=== PATIENT | female | born 1985 | race Caucasian/White ===

== ENCOUNTER 2016-05-23 16:11 | Emergency (ER) | payer BC ==
[2016-05-23 16:26] VITALS: BP 150/82
--- NOTE | 2016-05-23 16:26 | ER Document Report ---
ED Medical Screen (RME) - General Stated Complaint: FEVER,CHEST PAIN Notes: 30 yo cough, chest tightness, hurts to breath, fever x 3 days. + sore throat. + smoker hx/o + IDDM [facility] [place] End[facility]ology[facility] lungs CTA, Sat98% - Related Data Allergies/Adverse Reactions: No Known Allergies Allergy (Unverified 12/06/13 23:20) Past Medical History Endocrine Medical History: Reports: Hx Diabetes Mellitus Type 1 Past Surgical History: Reports: Hx Orthopedic Surgery - rt shoulder - Immunizations Hx Diphtheria, Pertussis, Tetanus Vaccination: No
[2016-05-23 16:51] LABS: ABSOLUTE LYMPHOCYTES (AUTO) 0.5 10^3/uL (0.5-4.7); ABSOLUTE MONOCYTES (AUTO) 0.4 10^3/uL (0.1-1.4); BASOPHILS % (AUTO) 0.5 % (0-2); EOSINOPHILS % (AUTO) 0.1 % (0-6); HEMATOCRIT 37.2 % (36.0-47.0); HEMOGLOBIN 12.5 g/dL (12.0-15.5); HGB HCT DIFFERENCE 0.3; LYMPHOCYTES % (AUTO) 15.9 % (13-45); MEAN CORPUSCULAR HEMOGLOBIN 26.2 pg (27.0-33.4); MEAN CORPUSCULAR HGB CONC 33.6 g/dL (32.0-36.0); MEAN CORPUSCULAR VOLUME 78 fl (80-97); MONOCYTES % (AUTO) 13.4 % (3-13); RED BLOOD COUNT 4.78 10^6/uL (3.72-5.28); SEGMENTED NEUTROPHILS % (AUTO) 70.1 % (42-78); WHITE BLOOD COUNT 2.9 10^3/uL (4.0-10.5)
--- NOTE | 2016-05-23 17:35 | ER Document Report ---
ED General - General Chief Complaint: Cough Stated Complaint: FEVER,CHEST PAIN Mode of Arrival: Ambulatory Information source: Patient Notes: Patient is a 30 yo white female with PMHx of IDDM who presents with 4 day history of fever (Tmax 101 orally), productive cough (white phlegm), sinus congestion and nausea. She states the cold started to settle in her chest today which is causing chest tightness, worse with deep inspiration and cough. She denies any difficulty breathing, SOB, wheezing, vomiting, diarrhea or dysuria. She is smoker (3/4 PPD). She has tried OTC medications with no relief. No history of asthma. TRAVEL OUTSIDE OF THE [place] IN LAST 30 DAYS: No - Related Data Allergies/Adverse Reactions: No Known Allergies Allergy (Verified 05/23/16 16:25) Past Medical History - Social History Smoking Status: Current Every Day Smoker Chew tobacco use (# tins/day): No Frequency of alcohol use: None Drug Abuse: None Family History: Reviewed & Not Pertinent Patient has suicidal ideation: No Patient has homicidal ideation: No Endocrine Medical History: Reports: Hx Diabetes Mellitus Type 1 Renal/ Medical History: Denies: Hx Peritoneal Dialysis Past Surgical History: Reports: Hx Orthopedic Surgery - rt shoulder - Immunizations Hx Diphtheria, Pertussis, Tetanus Vaccination: No Review of Systems - Review of Systems Constitutional: See HPI EENT: No symptoms reported Cardiovascular: See HPI Respiratory: See HPI Gastrointestinal: No symptoms reported Genitourinary: No symptoms reported Female Genitourinary: No symptoms reported Musculoskeletal: No symptoms reported Skin: No symptoms reported Hematologic/Lymphatic: No symptoms reported Neurological/Psychological: No symptoms reported Physical Exam - Vital signs Vitals: Temp Pulse Resp BP Pulse Ox 98.5 F 91 18 150/82 H 98 05/23/16 16:25 05/23/16 16:25 05/23/16 16:25 05/23/16 16:25 05/23/16 16:25 Interpretation: Hypertensive - Notes Notes: PHYSICAL EXAM: CONSTITUTIONAL: Alert and oriented, well-appearing and in no acute distress. HENT: Normocephalic, atraumatic. Ear canals without erythema or foreign body, TMs pearly reyes with good bony landmarks. Nares clear without erythema, septal hematoma or deviation, airway patent. Oropharynx clear without erythema, tonsilar exudate or malocclusion. Trachea midline. Uvula midline. Moist mucous membranes. EYES: Pupils equal round and reactive to light, EOM intact. Sclera anicteric, conjunctiva are normal. No entrapment. NECK: supple without lymphadenopathy. ROM intact. HEART: Regular rate and rhythm without murmurs. LUNGS: CTAB and equal. No wheezes, rales or rhonchi. EXTREMITIES: Normal range of motion, no pitting edema. No cyanosis. Cap Refill < 3 seconds. NEURO: Cranial nerves grossly intact. Normal sensory/motor exams. SKIN: Warm and dry. Normal turgor. No rashes or lesions noted. Course - Re-evaluation Re-evalutation: 05/23/16 17:32 Patient seen and examined. No respiratory distress, speaking in full sentences, 98% O2 on RA, unlabored breathing. Lungs CTAB. Initial lab work unremarkable, CXR negative for acute cardiopulmonary findings. EKG shows NSR. Due to patient' s history of smoking, most likely bronchitis. Will treat with abx, inhaled bronchodilators, oral steroids and anti-tussives. Discharged home in stable condition, return precautions given. Follow-up with PMD. Patient gave verbal agreement to management and plan, all questions answered. - Vital Signs Vital signs: Temp Pulse Resp BP Pulse Ox 98.5 F 91 18 150/82 H 98 05/23/16 16:25 05/23/16 16:25 05/23/16 16:25 05/23/16 16:25 05/23/16 16:25 - Laboratory Result Diagrams: 05/23/16 16:38 Laboratory results interpreted by me: 05/23/16 16:38 WBC 2.9 L MCV 78 L MCH 26.2 L Monocytes % 13.4 H - Diagnostic Test Radiology reviewed: Image reviewed, Reports reviewed Discharge - Discharge Clinical Impression: Bronchitis, Cough Condition: Stable Disposition: HOME, SELF-CARE Additional Instructions: BRONCHITIS: You have acute bronchitis. This disease is an infection or inflammation of the air passageways in your lungs. Symptoms usually include cough, low grade fever, shortness of breath, and wheezing. The cough usually persists for a couple of weeks. Most cases of bronchitis get better without antibiotics. We prescribe antibiotics when we believe bacteria are damaging your airways, or if there's high risk the bronchitis will worsen into pneumonia. Increase your fluid intake. A cool mist humidifier may make your lungs more comfortable. An expectorant (cough medicine that loosens phlegm) can help. If you smoke, STOP!!! Recovery from bronchitis can be somewhat slow, but you should see improvement within a day or two. Repeated episodes of bronchitis may result in lung damage -- for example, chronic bronchitis, recurrent pneumonias, or emphysema. Call the doctor if you develop increasing fever, shortness of breath, chest pain, bloody sputum, or otherwise worsen. If you have not improved at all after several days, contact the physician. DECONGESTANT MEDICATION: A decongestant medicine has been prescribed. Often this medicine is combined in the same tablet with an antihistamine or expectorant. This type of medicine is helpful in treating a bad cold or sinus condition, as well as in treatment of the nasal congestion of hay fever. It is not of much benefit for lung infections. Decongestant medicines are related to stimulants. They can cause an increase in blood pressure and heart rate. Persons with heart disease and high blood pressure should not take decongestants without discussing this with the physician. If you develop palpitations, chest pain, headache, or tremors, stop the medicine and consult your physician. COUGH-SUPPRESSANT & EXPECTORANT MEDICATION: You are to use a cough medication as needed for relief of symptoms. This medicine is a combination of an expectorant (to make the mucous thinner and more easily "coughed up") and a cough suppressant (to reduce the frequency of coughing). The cough-suppressant medicine is related to narcotics. You may experience mild nausea and sleepiness. Some patients who are very sensitive to narcotics may have stomach pain from this medicine. Taking the medicine with food reduces these side effects. Do not drive or work with machinery until you know how this medicine affects you. The expectorant should have no side effects. Iodine-containing expectorants (such as organidin) should not be taken by persons with active thyroid disease unless approved by your doctor. Call the doctor if you develop shortness of breath, hives, rash, itching, lightheadedness, or severe nausea and vomiting. INHALED BRONCHODILATORS: You have received a treatment of and/or prescription for an inhaled bronchodilator -- a medication which stimulates the airways in the lung to dilate. This improves the flow of air in asthma, bronchitis, and emphysema. These medicines have some similarity to adrenaline, and can cause similar side effects: shakiness, racing heart, and a sense of nervousness. These side effects decrease with time. Contact your doctor if these side effects are severe. Do not over-use the medicine. Too-frequent use of the inhaler may make it ineffective. Call your doctor if the inhaler is not controlling your symptoms at the prescribed doses. STEROID MEDICATION: You have been given an injection of or oral medicine of the cortisone/ steroid class. This medication is used to control inflammation or allergy. Francis t is usually only given for a short period of time, until the acute process subsides. There are usually no side effects from short-term use of cortisone-like medications. Some persons feel an increased sense of well-being and are not sleepy at bedtime. Long-term use of cortisone medications is best avoided, unless required for a severe condition. If your condition does not remit, or relapses after the course of corticosteroid medication, you should consult your physician. ANTIBIOTIC THERAPY: You have been given an antibiotic prescription. It's important that you take all the medication, unless instructed otherwise by your physician. Failure to complete the entire course can result in relapse of your condition. Common side effects of antibiotics include nausea, intestinal cramping, or diarrhea. Women may develop vaginal yeast infections, and babies can get yeast (thrush) in the mouth following the use of antibiotics. Contact your physician if you develop significant side effects from this medication. Allergy to this antibiotic can result in hives, wheezing, faintness, or itching. If symptoms of allergy occur, stop the medication and call your doctor. AZITHROMYCIN: Azithromycin (Zithromax) is a broad spectrum antibiotic in the same class as erythromycin. It can treat a variety of bacterial infections, but is most frequently used for respiratory infections. Azithromycin is extremely long-lasting. It accumulates in body tissues and continues to kill bacteria for many days. In order to improve absorption, Azithromycin should be taken at least one hour before or two hours after a meal. It does not have the same strong tendency to upset the stomach as erythromycin and is usually very well tolerated. Patients who have had a rash or other true allergic reactions to erythromycin should not take this medication. Call if you develop gastrointestinal distress, severe diarrhea, rash, hives, itching, or shortness of breath. USE OF ACETAMINOPHEN (Tylenol): Acetaminophen may be taken for pain relief or fever control. It's much safer than aspirin, offering a wider range of "safe" dosages. It is safe during . Some brand names are Tylenol, Panadol, Datril, Anacin 3, Tempra, and Liquiprin. Acetaminophen can be repeated every four hours. The following are maximum recommended dosages: >89 pounds or adults 650 mg to 900 mg Acetaminophen can be repeated every four hours. Maximum dose not to exceed 4000 mg a day. SMOKING: If you smoke, you should stop smoking. The tar and chemicals in cigarette smoke are harmful. Smoking has been shown to cause: emphysema chronic bronchitis lung cancer mouth and throat cancer stomach and pancreas cancer premature aging defects In addition, smoking increases ear and lung infections in children of smokers. FOLLOW-UP CARE: If you have been referred to a physician for follow-up care, call the physician s office for an appointment as you were instructed or within the next two days. If you experience worsening or a significant change in your symptoms, notify the physician immediately or return to the Emergency Department at any time for re-evaluation. Prescriptions: Pseudoephedrine HCl [Sudafed] 30 mg PO Q6HP PRN #8 tablet PRN Reason: Albuterol Sulfate [Proair HFA Inhalation Aerosol 8.5 gm MDI] 2 puff IH Q4H PRN # 1 mdi PRN Reason: Azithromycin [Zithromax 250 mg Tablet] 250 mg PO ASDIR #6 tablet Hydrocodone/Acetaminophen [Vicodin 5-300 mg Tablet] 1 tab PO ASDIR PRN #15 tab PRN Reason: Ondansetron [Zofran Odt 4 mg Tablet] 1 tab PO Q4H PRN #10 tab.rapdis PRN Reason: For Nausea/Vomiting Forms: Elevated Blood Pressure, Return to Work
--- NOTE | 2016-05-23 21:45 | EKG REPORT ---
SEVERITY:- NORMAL ECG - SINUS RHYTHM : Confirmed by: Jabier Enciso 23-May-2016 21:44:08
== END 2016-05-23 17:48 | disposition home or self-care (01) ==
LOC: ER 16:11
DX: J40 Bronchitis, not specified as acute or chronic (principal); R05 Cough; E10.9 Type 1 diabetes mellitus without complications; R50.9 Fever, unspecified; R09.81 Nasal congestion; R11.0 Nausea; R07.89 Other chest pain; F17.200 Nicotine dependence, unspecified, uncomplicated
CPT/HCPCS: 36415; 71020; 85025; 93005; 93010; 99284

== ENCOUNTER 2017-02-27 21:56 | Emergency (ER) | payer BC ==
[2017-02-27] MEDS ORDERED: DIPH/PERTUSS(ACELL)/TETANUS VAC/PF 0.5 ML SYR (>=10YO) IM ONE (23:37)
--- NOTE | 2017-02-27 23:43 | ER Document Report ---
ED General - General Chief Complaint: Shoulder Injury Stated Complaint: HEAD INJURY Time Seen by Provider: 02/27/17 23:33 Notes: Patient is a 31-year-old female who presents with complaint of injury while in the shower. Patient said she was washing and her nipple ring on her left nipple got caught and ripped out. She said this made her lightheaded wheezing she sat down and then passed out. She said she did hit her forehead has a small duration of her forehead. She says she does not have severe headache at this time is had no further vomiting or other complaints related to her head. She denies any weakness numbness into her extremities. She says when she did fall she fell mainly on her left shoulder and has pain into her left shoulder with movement or with palpation of the area. She denies any pain into her left elbow hand or wrist. She denies any pain into her right upper extremity. No pain into her pelvis or lower extremities. She is unsure when her last tetanus shot was. She has no other complaints at this time. TRAVEL OUTSIDE OF THE [place] IN LAST 30 DAYS: No - Related Data Allergies/Adverse Reactions: No Known Allergies Allergy (Verified 05/23/16 16:25) Past Medical History - Social History Smoking Status: Current Every Day Smoker Frequency of alcohol use: None Drug Abuse: None Family History: Reviewed & Not Pertinent Patient has suicidal ideation: No Patient has homicidal ideation: No Endocrine Medical History: Reports: Hx Diabetes Mellitus Type 1 Renal/ Medical History: Denies: Hx Peritoneal Dialysis Past Surgical History: Reports: Hx Orthopedic Surgery - rt shoulder - Immunizations Hx Diphtheria, Pertussis, Tetanus Vaccination: No Review of Systems - Review of Systems Notes: My Normal Review Basic REVIEW OF SYSTEMS: CONSTITUTIONAL : Denies fever, chills, or sweats. Denies recent illness. EENT: Denies eye, ear, throat, or mouth pain or symptoms. Denies nasal or sinus congestion. CARDIOVASCULAR: Denies chest pain. Except for some pain over the nipple where the ring got pulled out. RESPIRATORY: Denies cough, cold, or chest congestion. Denies shortness of breath, difficulty breathing, or wheezing. GASTROINTESTINAL: Denies abdominal pain. Denies nausea, vomiting, or diarrhea. Denies constipation. Last BM: MUSCULOSKELETAL: Left shoulder pain. SKIN: Denies rash or skin lesions. NEUROLOGICAL: Denies altered mental status or loss of consciousness. Denies headache. Denies weakness or paralysis or loss of use of either side. Denies problems with gait or speech. Denies sensory or motor loss. ALL OTHER SYSTEMS REVIEWED AND NEGATIVE. Physical Exam - Vital signs Vitals: Temp Pulse Resp BP Pulse Ox 99.1 F 75 18 133/76 H 100 02/27/17 22:12 02/27/17 22:12 02/27/17 22:12 02/27/17 22:12 02/27/17 22:12 - Notes Notes: General Appearance: Well nourished, alert, cooperative, no acute distress, no obvious discomfort. Vitals: reviewed, See vital signs table. Head: Very small abrasion to the forehead. No active bleeding. Very minimal swelling associated around the abrasion. The remainder of the skull is completely nontender to palpation. Mild tenderness to palpation of the forehead despite having abrasion there. Eyes: PERRL, EOMI, Conjuctiva clear Mouth: No decreasd moisture Neck: Supple, no neck tenderness, step-offs or deformities. Back: No thoracic or lumbar tenderness to palpation. No step-offs or deformities to palpation. Chest wall: Patient has a small laceration to left nipple around the base of the medial aspect of the nipple. Laceration is completely lined up and already appears to be healing. There is no active bleeding or swelling. Extremities: strength 5/5 in all extremities, good pulses in all extremities, these are completely nontender exception of pain to palpation of the left shoulder with pain with range of motion of the left shoulder. Elbows and wrists are completely nontender., no edema. Skin: warm, dry, appropriate color, no rash Neuro: speech clear, oriented x 3, normal affect, responds appropriately to questions. Cranial nerves II through XII are intact. Distal sensation intact. Patient moves all extremities without difficulty. Course - Re-evaluation Re-evalutation: 02/28/17 02:58 Patient has what appears to be 2 very small lacerations. One is at the base of the nipple. Is intact and already healing. I did clean the area chlorhexidine and then apply Dermabond to reinforce it. The stitches need at this time. Patient also has a small superficial laceration of the forehead. This is not at all. I did clean the area with chlorhexidine and apply Dermabond to it as well. Patient does not require CT scan of her head as she is awake alert and oriented without focal neurologic deficits or vomiting and has just very minimal swelling at the area of impact without frequent pain to palpation of the skull itself. Shoulder x-ray was performed and showed no evidence of dislocation or fracture. Patient is a history of recurrent shoulder injuries. I will give her a sling but encourage her to place her left shoulder through range of motion twice a day to help prevent frozen shoulder syndrome. I encouraged her follow-up with a primary care doctor or orthopedist in 1 week for reevaluation to determine whether or not she needs an MRI. Patient encouraged to return to ER if she has severe headache, vomiting, or feels unwell. Patient agrees with plan and will be discharged home. Dictation of this chart was performed using voice recognition software; therefore, there may be some unintended grammatical errors. - Vital Signs Vital signs: Temp Pulse Resp BP Pulse Ox 97.8 F 77 16 126/76 H 99 02/28/17 01:30 02/28/17 01:30 02/28/17 01:30 02/28/17 01:30 02/28/17 01:30 Procedures - Laceration/Wound Repair left nipple Wound length (cm): 1 Wound's Depth, Shape: Superficial, Linear Laceration pre-procedure: Chloraprep applied Wound explored: Clean, No foreign body removed Wound Repaired With: Dermabond Complications: No forehead Wound length (cm): 1 Wound's Depth, Shape: Superficial, Linear Laceration pre-procedure: Chloraprep applied Wound explored: Clean, No foreign body removed Wound Repaired With: Dermabond Complications: No Discharge - Discharge Clinical Impression: Laceration Shoulder pain, right Qualifiers: Chronicity: acute Qualified Code(s): M25.511 - Pain in right shoulder Minor head injury Qualifiers: Encounter type: initial encounter Qualified Code(s): S00.90XA - Unspecified superficial injury of unspecified part of head, initial encounter Condition: Good Disposition: HOME, SELF-CARE Additional Instructions: TETANUS IMMUNIZATION GIVEN: You have been given an immunization against tetanus. Please record this in your records. In general, a booster is needed only once every 10 years. The tetanus shot protects against tetanus or "lockjaw," which is a complication of certain wound infections (the tetanus shot cannot protect against the actual infection). The immunization site may become warm and red due to local reaction. If this occurs, apply warm compresses and take aspirin or ibuprofen to reduce inflammation and discomfort. Return for evaluation if the reaction becomes severe. ORAL NARCOTIC MEDICATION: You have been given a prescription for pain control. This medication is a narcotic. It's best taken with food, as nausea can result if taken on an empty stomach. Don't operate machinery or drive within six hours of taking this medication. Do not combine this medicine with alcohol, or with any medication which can cause sedation (such as cold tablets or sleeping pills) unless you get permission from the physician. Narcotics tend to cause constipation. If possible, drink plenty of fluids and eat a diet high in fiber and fruits. We applied dermabond to your cuts to reinforce them to allow them to heal appropriately. Please return to the ER immediately if you have any redness or swelling around the wounds, severe headache, vomiting or if you feel unwell. Please wear the sling as needed for support. Please follow up with your doctor in 1 week to check range of motion of your shoulder and to check strength. Please try to put your shoulder through range of motion at least twice a day. If you continue to have pain you may eventually need an MRI. Please use Motrin for pain and use the [place] only for breakthrough pain. Forms: Return to Work Referrals: CARLO ARIAS MD [Primary Care Provider] - Follow up as needed
--- NOTE | 2017-02-28 00:08 | RADIOLOGY REPORT (SQ) ---
EXAM DESCRIPTION: SHOULDER LEFT 2 OR MORE VIEWS CLINICAL HISTORY: Fall. Left shoulder pain. COMPARISON: None. FINDINGS: 3 views of the left shoulder. No acute fracture or dislocation. Normal osseous mineralization. No left-sided rib fractures or left-sided pneumothorax. IMPRESSION: No acute fracture or dislocation.
[2017-02-28] MEDS ORDERED: HYDROCODONE/ACETAMINOPHEN 5-325 MG (6 TAB/ER DISP) PO PRN (01:02)
[2017-02-28 01:32] VITALS: BP 126/76
== END 2017-02-28 01:32 | disposition home or self-care (01) ==
LOC: ER 21:56
PROC: 0HQ1XZZ Repair Face Skin, External Approach (ICD-10-PCS; principal; 2017-02-27)
PROC: 0HQXXZZ Repair Left Nipple, External Approach (ICD-10-PCS; 2017-02-27)
DX: S21.012A Laceration without foreign body of left breast, initial encounter (principal); S01.81XA Laceration without foreign body of other part of head, initial encounter; M25.511 Pain in right shoulder; W18.2XXA Fall in (into) shower or empty bathtub, initial encounter; Y92.002 Bathroom of unspecified non-institutional (private) residence as the place of occurrence of the external cause; Z23 Encounter for immunization; E10.9 Type 1 diabetes mellitus without complications
CPT/HCPCS: 90715; 99284

== ENCOUNTER 2017-09-26 00:06 | Emergency (ER) | payer OTHER, BC ==
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
[2017-09-26] MEDS ORDERED: IBUPROFEN 600 MG TABLET PO ONE (03:10)
[2017-09-26] MEDS ORDERED: OXYCODONE-ACETAMINOPHEN 5-325 MG TABLET PO ONE (03:10)
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
[2017-09-26 04:11] VITALS: BP 128/69
== END 2017-09-26 04:10 | disposition home or self-care (01) ==
LOC: ER 00:06
DX: S40.011A Contusion of right shoulder, initial encounter (principal); S90.31XA Contusion of right foot, initial encounter; V27.4XXA Motorcycle driver injured in collision with fixed or stationary object in traffic accident, initial encounter; Y92.410 Unspecified street and highway as the place of occurrence of the external cause; F17.210 Nicotine dependence, cigarettes, uncomplicated; E10.9 Type 1 diabetes mellitus without complications
CPT/HCPCS: 99284

== ENCOUNTER 2020-01-06 06:04 | Emergency (ER) | payer BC ==
[2020-01-06] MEDS ORDERED: CEPHALEXIN 500 MG CAPSULE PO ONE (06:38)
[2020-01-06] MEDS ORDERED: DIPH/PERTUSS(ACELL)/TETANUS VAC/PF 0.5 ML SYR (>=10YO) IM ONE (06:38)
[2020-01-06] MEDS ORDERED: LIDOCAINE 1%/EPINEPHRINE INJ 20 ML VIAL INJ ONE (06:39)
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
[2020-01-06 07:25] VITALS: BP 120/79
--- NOTE | 2020-01-06 07:57 | RADIOLOGY REPORT (SQ) ---
EXAM DESCRIPTION: XR TIBIA FIBULA 2 VIEWS COMPLETED DATE/TME: 01/06/2020 00:00 CLINICAL HISTORY: 34 years Female, bone pain COMPARISON: None. Findings: Known soft tissue injury; no radioopaque foreign body. Bones, joints, and soft tissues of the RIGHT XR TIBIA FIBULA 2 VIEWS appear otherwise intact. IMPRESSION: Soft tissue injury; else, no acute findings. .
== END 2020-01-06 07:25 | disposition home or self-care (01) ==
LOC: ER 06:04
DX: S81.811A Laceration without foreign body, right lower leg, initial encounter (principal); W27.0XXA Contact with workbench tool, initial encounter; F17.200 Nicotine dependence, unspecified, uncomplicated; E10.9 Type 1 diabetes mellitus without complications; Z79.4 Long term (current) use of insulin; Z23 Encounter for immunization
CPT/HCPCS: 99283; 90471; 73590; 90715; 12001; J3490